=== PATIENT | male | born 1960 | race Caucasian/White ===

== ENCOUNTER 2021-03-21 02:20 | Emergency (ER) | payer OTHER ==
[2021-03-21 02:24] VITALS: RESP 18; TEMP 98.6
--- NOTE | 2021-03-21 02:33 | ED ---
Male Urogenital HPI - General Chief complaint: Urogenital Stated complaint: Urogenital Time Seen by Provider: 03/21/21 02:25 Source: patient Mode of arrival: ambulatory Limitations: no limitations - History of Present Illness Initial comments: 60 year-old male patient presents to the emergency department for evaluation of dysuria, urinary urgency, and frequency. States it started tonight. Does have history of enlarged prostate, not currently on any medication. Patient states he has had some blood in his urine. Denies blood thinners. Denies any unusual sexual practices or anal sex. Denies history of diabetes. Denies fever, nausea, or vomiting. States he has been chilled. Denies any suprapubic pain or pressure. Patient denies any recent rash, cough, shortness of breath, chest pain, diarrhea, constipation, back pain, numbness, tingling, dizziness, weakness, headache, visual changes, or any other complaints. - Related Data Home Medications Medication Instructions Recorded Confirmed [place]-3 Fatty Acids/Fish Oil [Fish 1 cap PO DAILY 03/15/17 03/15/17 Oil 1,000 mg Softgel] amLODIPine [Norvasc] 10 mg PO DAILY 03/15/17 03/15/17 buPROPion HCL [Wellbutrin SR] 200 mg PO DAILY 03/15/17 03/15/17 Previous Rx's Medication Instructions Recorded Albuterol Inhaler (Mhu) [Ventolin 2 puff INHALATION RT-QID #1 inh 03/16/17 Hfa Inhaler (Mhu)] Aspirin 81 mg PO DAILY #30 chew 03/16/17 Atorvastatin [Lipitor] 80 mg PO DAILY #30 tab 03/16/17 Budesonide-Formot 160-4.5 Mcg 2 puff INHALATION RT-BID #1 inh 03/16/17 [Symbicort 160-4.5 Mcg Inhaler] Clopidogrel [Plavix] 75 mg PO DAILY #30 tab 03/16/17 Isosorbide Mononitrate ER [Imdur] 30 mg PO BID #60 tab.er.24h 03/16/17 Metoprolol Tartrate [Lopressor] 25 mg PO BID #60 tab 03/16/17 Nicotine 21Mg/24Hr Patch [Habitrol] 1 patch TRANSDERM DAILY #30 patch 03/16/17 predniSONE 10 mg PO DIRECTED #30 tab 03/16/17 traMADol HCL [Ultram] 50 mg PO Q6HR PRN #20 tab 03/16/17 Phenazopyridine [Pyridium] 200 mg PO TID #18 tablet 03/21/21 Sulfamethoxazole/Trimethoprim 1 each PO BID #20 tablet 03/21/21 [Bactrim DS 800-160 mg] Allergies Allergy/AdvReac Type Severity Reaction Status Date / Time No Known Allergies Allergy Verified 03/21/21 02:24 Review of Systems ROS Statement: Those systems with pertinent positive or pertinent negative responses have been documented in the HPI. ROS Other: All systems not noted in ROS Statement are negative. 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 Last Myocardial Infarction Date:: 03/14/17 History of Any Multi-Drug Resistant Organisms: None Reported Past Surgical History: Appendectomy Additional Past Surgical History / Comment(s): Colonoscopy-3 months ago that was normal. Past Anesthesia/Blood Transfusion Reactions: No Reported Reaction Past Psychological History: Depression Smoking Status: Current every day smoker Past Alcohol Use History: Rare Past Drug Use History: Marijuana - Past Family History Father Family Medical History: Hypertension Additional Family Medical History / Comment(s): Father at the age of 86yrs. He had gout. Mother Family Medical History: COPD, Rheumatoid Arthritis (RA) Additional Family Medical History / Comment(s): Mother had a lung mass. She at the age of 68yrs. Brother(s) Additional Family Medical History / Comment(s): Pt had a brother who comitted suicide by hanging when pt was 15 yrs old. General Exam Limitations: no limitations General appearance: alert, in no apparent distress, other (This is a well- developed, well-nourished adult male patient in no acute distress.) Eye exam: Present: normal appearance, PERRL, EOMI. Absent: scleral icterus, conjunctival injection, periorbital swelling ENT exam: Present: normal exam, normal oropharynx, mucous membranes moist Respiratory exam: Present: wheezes (Expiratory wheezing noted in the posterior lung mills). Absent: normal lung sounds bilaterally, respiratory distress, rales, rhonchi, stridor Cardiovascular Exam: Present: regular rate, normal rhythm, normal heart sounds. Absent: systolic murmur, diastolic murmur, rubs, gallop, clicks GI/Abdominal exam: Present: soft, normal bowel sounds. Absent: distended, tenderness, guarding, rebound, rigid Neurological exam: Present: alert, oriented X3, CN II-XII intact Psychiatric exam: Present: normal affect, normal mood Skin exam: Present: warm, dry, intact, normal color. Absent: rash Course Vital Signs 03/21/21 02:21 Temperature 98.6 F Pulse Rate 18 L Respiratory 18 Rate Blood Pressure 178/81 O2 Sat by Pulse 97 Oximetry Medical Decision Making - Medical Decision Making 60-year-old male patient presents to the emergency department today for evaluation of hematuria, dysuria, urinary frequency and urgency. Symptoms started today. Physical examination reveals soft nontender abdomen. No CVA tenderness. He is afebrile. Bladder scan was performed and showed 60 mL. Urinalysis was performed and showed greater than 182 red and white blood cells. I did discuss possibility of urinary tract infection with the patient. We'll send urine for culture. We started on Bactrim. Discharge follow up with urologist for further evaluation as soon as possible. Return parameters were discussed in detail. He verbalizes understanding and agrees this plan. Case discussed with my attending Dr. Sparks. - Lab Data Lab Results 03/21/21 Range/Units 03:11 Urine Color Light Red Urine Appearance Turbid (Clear) Urine pH 5.5 (5.0-8.0) Ur Specific [place] 1.022 (1.001-1.035) Urine Protein 2+ H (Negative) Urine Glucose (UA) Negative (Negative) Urine Ketones Negative (Negative) Urine Blood Large H (Negative) Urine Nitrite Negative (Negative) Urine Bilirubin Negative (Negative) Urine Urobilinogen <2.0 (<2.0) mg/dL Ur Leukocyte Esterase Large H (Negative) Urine RBC >182 H (0-5) /hpf Urine WBC >182 H (0-5) /hpf Urine WBC Clumps Moderate H (None) /hpf Urine Mucus Rare H (None) /hpf Disposition Clinical Impression: UTI (urinary tract infection) Disposition: HOME SELF-CARE Condition: Good Instructions (If sedation given, give patient instructions): Urinary Tract Infection in Men (ED) Additional Instructions: Increase fluids. Complete antibiotic prescription in full. Take Pyridium for pain relief as needed, this medication will turn your urine bright orange color. Follow-up with urologist for further evaluation. Return to the emergency department immediately if you are unable to urinate, he developed vomiting, or high fevers. Prescriptions: Sulfamethoxazole/Trimethoprim [Bactrim DS 800-160 mg] 1 each PO BID #20 tablet Phenazopyridine [Pyridium] 200 mg PO TID #18 tablet Is patient prescribed a controlled substance at d/c from ED?: No Referrals: Nonstaff,Physician [Primary Care Provider] - 1-2 days Constantine Miranda MD [STAFF PHYSICIAN] - 1-2 days Time of Disposition: 03:53
[2021-03-21 03:30] LABS: Appearance,Urine Turbid (Clear); Bilirubin,Urine Negative (Negative); Blood,Urine Large (Negative); Color,Urine Light Red; Glucose,Urine (UA) Negative (Negative); Ketones,Urine Negative (Negative); Leukocyte Esterase,Urine Large (Negative); Mucus,Urine Rare /hpf; Nitrite,Urine Negative (Negative); PH, Urine 5.5 (5.0-8.0); Protein,Urine 2+ (Negative); RBC,Urine >182 /hpf (0-5); Specific Gravity,Urine 1.022 (1.001-1.035); Urobilinogen,Urine <2.0 mg/dL (<2.0); WBC,Urine >182 /hpf (0-5)
[2021-03-21] MEDS ORDERED: SULFAMETH-TMP DS STARTER PACK 2 TAB BTL PO STA (03:51)
[2021-03-21] MEDS ORDERED: PHENAZOPYRIDINE 200 MG TAB PO STA (03:51)
[2021-03-21 04:11] VITALS: BP 145/78; PULSE 94
== END 2021-03-21 04:10 | disposition home or self-care (01) ==
LOC: EC 02:20
DX: N39.0 Urinary tract infection, site not specified (principal); F17.200 Nicotine dependence, unspecified, uncomplicated; J44.9 Chronic obstructive pulmonary disease, unspecified; I10 Essential (primary) hypertension; I25.2 Old myocardial infarction; Z79.899 Other long term (current) drug therapy
CPT/HCPCS: 51798; 81001; 87086; 99283

== ENCOUNTER 2022-10-31 20:36 | Emergency (ER) | payer OTHER ==
[2022-10-31 20:43] VITALS: TEMP 98.7
--- NOTE | 2022-10-31 20:50 | ED ---
General Adult HPI - General Source: patient, RN notes reviewed Mode of arrival: ambulatory Limitations: no limitations <Sobia Garcia - Last Filed: 10/31/22 20:48> <Dennis Nicholas - Last Filed: 10/31/22 23:05> - General Chief complaint: Shortness of Breath Stated complaint: Possible pneumonia Time Seen by Provider: 10/31/22 20:48 - History of Present Illness Initial comments: Patient is 62-year-old male presents emergency department for shortness of breath. It started 5 days ago with cough and congestion. Denies chest pain fever and chills. Patient has history of asthma and COPD. (Sobia Garcia) 62-year-old male presents for evaluation of increased dyspnea. Cough is pred ominantly dry. No associated chest pain. No lower extremity pain or swelling. Patient is a current smoker and has a history of COPD. His primary care physician had prescribed Tessalon Perles and nasal spray without relief. Patient denies measured fever. He denies vomiting. (Dennis Nicholas) - Related Data Home Medications Medication Instructions Recorded Confirmed [place]-3 Fatty Acids/Fish Oil [Fish 1 cap PO DAILY 03/15/17 03/15/17 Oil 1,000 mg Softgel] amLODIPine [Norvasc] 10 mg PO DAILY 03/15/17 03/15/17 buPROPion HCL [Wellbutrin SR] 200 mg PO DAILY 03/15/17 03/15/17 Previous Rx's Medication Instructions Recorded Albuterol Inhaler [Ventolin Hfa 2 puff INHALATION RT-QID #1 inh 03/16/17 Inhaler] Aspirin 81 mg PO DAILY #30 chew 03/16/17 Atorvastatin [Lipitor] 80 mg PO DAILY #30 tab 03/16/17 Budesonide-Formot 160-4.5 Mcg 2 puff INHALATION RT-BID #1 inh 03/16/17 [Symbicort 160-4.5 Mcg Inhaler] Clopidogrel [Plavix] 75 mg PO DAILY #30 tab 03/16/17 Isosorbide Mononitrate ER [Imdur] 30 mg PO BID #60 tab.er.24h 03/16/17 Metoprolol Tartrate [Lopressor] 25 mg PO BID #60 tab 03/16/17 Nicotine 21Mg/24Hr Patch [Habitrol] 1 patch TRANSDERM DAILY #30 patch 03/16/17 predniSONE 10 mg PO DIRECTED #30 tab 03/16/17 traMADol HCL [Ultram] 50 mg PO Q6HR PRN #20 tab 03/16/17 Phenazopyridine [Pyridium] 200 mg PO TID #18 tablet 03/21/21 Sulfamethoxazole/Trimethoprim 1 each PO BID #20 tablet 03/21/21 [Bactrim DS 800-160 mg] Albuterol Inhaler [Ventolin Hfa 1 - 2 puff INHALATION Q4HR PRN #1 10/31/22 Inhaler] each Azithromycin [Zithromax Z Pack] 1 tab PO DIRECTED #6 tab 10/31/22 predniSONE 50 mg PO DAILY #5 tab 10/31/22 Allergies Allergy/AdvReac Type Severity Reaction Status Date / Time No Known Allergies Allergy Verified 10/31/22 20:42 Review of Systems ROS Other: All systems not noted in ROS Statement are negative. <Sobia Garica - Last Filed: 10/31/22 20:48> ROS Other: All systems not noted in ROS Statement are negative. <Dennis Nicholas - Last Filed: 10/31/22 23:05> ROS Statement: Those systems with pertinent positive or pertinent negative responses have been documented in the HPI. 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 Shingles Last Myocardial Infarction Date:: 03/14/17 History of Any Multi-Drug Resistant Organisms: None Reported Past Surgical History: Appendectomy Additional Past Surgical History / Comment(s): Colonoscopy-3 months ago that was normal. Past Anesthesia/Blood Transfusion Reactions: No Reported Reaction Past Psychological History: Depression Smoking Status: Current every day smoker Past Alcohol Use History: Rare Past Drug Use History: Marijuana - Past Family History Father Family Medical History: Hypertension Additional Family Medical History / Comment(s): Father at the age of 86yrs. He had gout. Mother Family Medical History: COPD, Rheumatoid Arthritis (RA) Additional Family Medical History / Comment(s): Mother had a lung mass. She at the age of 68yrs. Brother(s) Additional Family Medical History / Comment(s): Pt had a brother who comitted suicide by hanging when pt was 15 yrs old. <Sobia Garcia - Last Filed: 10/31/22 20:48> General Exam Limitations: no limitations <Sobia Garcia - Last Filed: 10/31/22 20:48> General appearance: alert, in no apparent distress Head exam: Present: atraumatic, normocephalic Eye exam: Present: other (Discordant gaze) Respiratory exam: Present: wheezes, decreased breath sounds. Absent: respiratory distress Cardiovascular Exam: Present: regular rate, normal rhythm GI/Abdominal exam: Present: soft. Absent: distended, tenderness Extremities exam: Present: normal inspection, normal capillary refill. Absent: pedal edema Neurological exam: Present: alert, oriented X3, CN II-XII intact. Absent: motor sensory deficit Psychiatric exam: Present: normal affect, normal mood Skin exam: Present: warm, dry, intact. Absent: cyanosis, diaphoretic <Dennis Nicholas - Last Filed: 10/31/22 23:05> - General Exam Comments Initial Comments: Visual Physical Exam Vital signs reviewed General: Well-appearing, nontoxic, no acute distress. Head: Normocephalic, atraumatic Eyes: PERRLA, EOMI ENT: Airway patent Chest: Nonlabored breathing Skin: No visual rash, normal skin tone Neuro: Alert and oriented 3 Musculoskeletal: No gross abnormalities (Sobia Garcia) Course Vital Signs 10/31/22 10/31/22 20:40 22:54 Temperature 98.7 F Pulse Rate 94 87 Respiratory 18 22 Rate Blood Pressure 168/81 160/95 O2 Sat by Pulse 95 94 L Oximetry Medical Decision Making - Lab Data Result diagrams: 10/31/22 21:50 10/31/22 21:50 <Dennis Nicholas - Last Filed: 10/31/22 23:05> - Medical Decision Making Was pt. sent in by a medical professional or institution (BRITANY Perez, CONSTRUCTION ENGINEERING MANAGER, urgent care, hospital, or [facility]...) When possible be specific @ -No Did you speak to anyone other than the patient for history (EMS, parent, family, police, friend...)? What history was obtained from this source @ -No Did you review nursing and triage notes (agree or disagree)? Why? @ -I reviewed and agree with nursing and triage notes Were old charts reviewed (outside hosp., previous admission, EMS record, old EKG, old radiological studies, urgent care reports/EKG's, [facility] records)? Report findings @ -No old charts were reviewed Differential Diagnosis (chest pain, altered mental status, abdominal pain women, abdominal pain men, vaginal bleeding, weakness, fever, dyspnea, syncope, headache, dizziness, GI bleed, back pain, seizure, CVA, palpatations, mental health, musculoskeletal)? @ Differential Dyspnea: Coronary syndrome, arrhythmia, tamponade, asthma, COPD, pulmonary embolism, pneumonia, pneumothorax, pulmonary effusion, anaphylaxis, diabetic ketoacidosis, flailed chest, pulmonary contusion, diaphragmatic rupture, anemia, neuromuscular, this is not meant to be an all-inclusive list. EKG interpreted by me (3pts min.). @ -[Sinus rhythm rate of 87, SC interval 118, QRS duration 100, QTC 412, no ST segment elevation. X-rays interpreted by me (1pt min.). @ -[No large focal pneumonia, hyperinflation consistent with COPD CT interpreted by me (1pt min.). @ -None done U/S interpreted by me (1pt. min.). @ -None done What testing was considered but not performed or refused? (CT, X-rays, U/S, labs)? Why? @ -None What meds were considered but not given or refused? Why? @ -None Did you discuss the management of the patient with other professionals (professionals i.e. BRITANY Perez, CONSTRUCTION ENGINEERING MANAGER, lab, RT, psych nurse, health and social care teacher, buggy driver, teacher, chief mechanical officer, hospice case manager)? Give summary @ -No Was smoking cessation discussed for >3mins.? @ -No Was critical care preformed (if so, how long)? @ -No Were there social determinants of health that impacted care today? How? (Homelessness, low income, unemployed, alcoholism, drug addiction, transportation, low edu. Level, literacy, decrease access to med. care, retirement, rehab)? @ -No Was there de-escalation of care discussed even if they declined (Discuss DNR or withdrawal of care, Hospice)? DNR status @ -No What co-morbidities impacted this encounter? (DM, HTN, Smoking, COPD, CAD, Cancer, CVA, ARF, Chemo, Hep., AIDS, mental health diagnosis, sleep apnea, morbid obesity)? @ -[COPD Was patient admitted / discharged? Hospital course, mention meds given and route, prescriptions, significant lab abnormalities, going to OR and other pertinent info. @ -[62-year-old male with increased cough and congestion. Exam concerning for COPD exacerbation. EKG is sinus rhythm without ST segment elevation. Chest x- ray shows hyperinflation, no pneumothorax or acute findings patient started on steroids, antibiotics and albuterol for COPD exacerbation. Patient has normal CBC, normal CMP, negative viral panel Undiagnosed new problem with uncertain prognosis? @ -No Drug Therapy requiring intensive monitoring for toxicity (Heparin, Nitro, Insulin, Cardizem)? @ -No Were any procedures done? @ -No Diagnosis/symptom? @ -[COPD exacerbation Acute, or Chronic, or Acute on Chronic? @ -[Acute on chronic Uncomplicated (without systemic symptoms) or Complicated (systemic symptoms)? @ -[Complicated Side effects of treatment? @ -No Exacerbation, Progression, or Severe Exacerbation? @ -Exacerbation Poses a threat to life or bodily function? How? (Chest pain, USA, MD, pneumonia, PE, COPD, DKA, ARF, appy, cholecystitis, CVA, Diverticulitis, Homicidal, Suicidal, threat to staff... and all critical care pts) @ -[Yes, COPD (Dennis Nicholas) - Lab Data Lab Results 10/31/22 10/31/22 10/31/22 Range/Units 20:48 21:50 21:50 WBC 7.0 (3.8-10.6) k/uL RBC 4.89 (4.30-5.90) m/uL Hgb 15.8 (13.0-17.5) gm/dL Hct 45.9 (39.0-53.0) % MCV 93.8 (80.0-100.0) fL MCH 32.3 (25.0-35.0) pg MCHC 34.4 (31.0-37.0) g/dL RDW 13.0 (11.5-15.5) % Plt Count 188 (150-450) k/uL MPV 7.7 Neutrophils % 55 % Lymphocytes % 29 % Monocytes % 7 % Eosinophils % 5 % Basophils % 0 % Neutrophils # 3.8 (1.3-7.7) k/uL Lymphocytes # 2.1 (1.0-4.8) k/uL Monocytes # 0.5 (0-1.0) k/uL Eosinophils # 0.3 (0-0.7) k/uL Basophils # 0.0 (0-0.2) k/uL Sodium 138 (137-145) mmol/L Potassium 4.2 (3.5-5.1) mmol/L Chloride 101 (98-107) mmol/L Carbon Dioxide 28 (22-30) mmol/L Anion Gap 9 mmol/L BUN 11 (9-20) mg/dL Creatinine 0.85 (0.66-1.25) mg/dL Est GFR (CKD-EPI)AfAm >90 (>60 ml/min/1.73 sqM) Est GFR (CKD-EPI)NonAf >90 (>60 ml/min/1.73 sqM) Glucose 108 H (74-99) mg/dL Calcium 9.0 (8.4-10.2) mg/dL Total Bilirubin 0.8 (0.2-1.3) mg/dL AST 36 (17-59) U/L ALT 46 (4-49) U/L Alkaline Phosphatase 79 (38-126) U/L Total Protein 7.5 (6.3-8.2) g/dL Albumin 4.3 (3.5-5.0) g/dL Influenza Type A (PCR) Not Detected (Not Detectd) Influenza Type B (PCR) Not Detected (Not Detectd) RSV (PCR) Not Detected (Not Detectd) SARS-CoV-2 (PCR) Not Detected (Not Detectd) Disposition <Sobia Garcia - Last Filed: 10/31/22 20:48> Is patient prescribed a controlled substance at d/c from ED?: No Time of Disposition: 23:04 <Dennis Nicholas - Last Filed: 10/31/22 23:05> Clinical Impression: Acute exacerbation of chronic obstructive pulmonary disease Disposition: HOME SELF-CARE Condition: Fair Instructions (If sedation given, give patient instructions): COPD (Chronic Obstructive Pulmonary Disease) (ED) Prescriptions: predniSONE 50 mg PO DAILY #5 tab Albuterol Inhaler [Ventolin Hfa Inhaler] 1 - 2 puff INHALATION Q4HR PRN #1 each PRN Reason: Shortness Of Breath Azithromycin [Zithromax Z Pack] 1 tab PO DIRECTED #6 tab Referrals: Nonstaff,Physician [Primary Care Provider] - 1-2 days Dennis Ayers DO [Doctor of Osteopathic Medicine] - 1-2 days
--- NOTE | 2022-10-31 21:25 | XR ---
EXAMINATION TYPE: XR chest 2V DATE OF EXAM: 10/31/2022 9:19 PM COMPARISON: None TECHNIQUE: XR chest 2V Frontal and lateral views of the chest. CLINICAL INDICATION:Male, 62 years old with history of sob; FINDINGS: Lungs/Pleura: There is no evidence of pleural effusion, focal consolidation, or pneumothorax. Pulmonary vascularity: Unremarkable. Heart/mediastinum: Cardiomediastinal silhouette is unremarkable. Musculoskeletal: No acute osseous pathology. IMPRESSION: 1. No acute cardiopulmonary disease process. 2. COPD changes.
[2022-10-31 22:13] LABS: Basophils % (A) 0 %; Eosinophils # (A) 0.3 k/uL (0-0.7); Eosinophils % (A) 5 %; HCT 45.9 % (39.0-53.0); HGB 15.8 gm/dL (13.0-17.5); Lymphocytes # (A) 2.1 k/uL (1.0-4.8); Lymphocytes % (A) 29 %; MCH 32.3 pg (25.0-35.0); MCHC 34.4 g/dL (31.0-37.0); MCV 93.8 fL (80.0-100.0); Mean Platelet Volume 7.7; Monocytes # (A) 0.5 k/uL (0-1.0); Monocytes % (A) 7 %; Neutrophils # (A) 3.8 k/uL (1.3-7.7); Neutrophils % (A) 55 %; Platelet Count 188 k/uL (150-450); RBC 4.89 m/uL (4.30-5.90)
[2022-10-31 22:23] LABS: ALT 46 U/L (4-49); AST 36 U/L (17-59); African American GFR (CKD) >90 (>60 ml/min/1.73 sqM); Albumin 4.3 g/dL (3.5-5.0); Alkaline Phosphatase 79 U/L (38-126); Anion Gap 9 mmol/L; Blood Urea Nitrogen 11 mg/dL (9-20); Carbon Dioxide 28 mmol/L (22-30); Chloride 101 mmol/L (98-107); Glucose 108 mg/dL (74-99); Non-African American GFR(CKD) >90 (>60 ml/min/1.73 sqM); Potassium 4.2 mmol/L (3.5-5.1); Sodium 138 mmol/L (137-145); Total Bilirubin 0.8 mg/dL (0.2-1.3); Total Protein 7.5 g/dL (6.3-8.2)
[2022-10-31] MEDS ORDERED: predniSONE 50 MG TAB PO STA (22:58)
[2022-10-31] MEDS ORDERED: ALBUTEROL NEBULIZED 2.5 MG/3 ML INHALATION STA (22:58)
[2022-10-31] MEDS ORDERED: IPRATROPIUM-ALBUTEROL 3 ML NEB INHALATION STA (22:58)
[2022-10-31] MEDS ORDERED: AZITHROMYCIN 500 MG TAB PO STA (22:59)
[2022-11-01 00:15] VITALS: BP 131/68; PULSE 86; RESP 20
== END 2022-11-01 00:15 | disposition home or self-care (01) ==
LOC: EC 20:36
DX: J44.1 Chronic obstructive pulmonary disease with (acute) exacerbation (principal); I10 Essential (primary) hypertension; I25.2 Old myocardial infarction; F32.A Depression, unspecified; F17.200 Nicotine dependence, unspecified, uncomplicated; F12.90 Cannabis use, unspecified, uncomplicated; Z79.899 Other long term (current) drug therapy; Z20.822 Contact with and (suspected) exposure to COVID-19
CPT/HCPCS: 36415; 94640; 93005; 80053; 85025; 87636; 71046; 99285; J7512